=== PATIENT | female | born 1960 | race Caucasian/White ===

== ENCOUNTER 2016-05-31 10:06 | Emergency (ER) | payer BC, OTHER ==
[~2016-05-31] VITALS: Ht 165.1 cm; Wt 106.0 kg
[~2016-05-31 10:06] MED LIST: LEVE-5 PO; ONDA-43 PO; PRED10TA PO; PRED20 PO
[2016-05-31 10:09] VITALS: Ht 165.1 cm; Wt 106.0 kg
[2016-05-31] MEDS ORDERED: DIPHENHYDRAMINE 50 MG INJ IV STA (10:39)
[2016-05-31] MEDS ORDERED: ACETAMINOPHEN 325 MG TAB PO STA (10:39)
[2016-05-31] MEDS ORDERED: SOD CHLORIDE 0.9% 500 ML IV STA (10:39)
[2016-05-31] MEDS ORDERED: METOCLOPRAMIDE 10 MG INJ IV ONE (11:00)
[2016-05-31] MEDS ORDERED: ACET325T33 PO (11:16)
[2016-05-31] MEDS ORDERED: LORA-186 PO (11:16)
--- NOTE | 2016-05-31 11:50 | ERD ---
ER Documentation Chief Complaint Date/Time DATE: 05/31/16 TIME: 11:47 Chief Complaint L headache w/ ear pain x last night with (tylenol @ 2230) HPI This is a 56-year-old female with a history of epilepsy and headaches presenting to the emergency department complaining of left-sided headache and ear pain since the past 3 days. Patient states that the pain comes and goes she describes her ear pain as soreness. She denies any neuro deficits, vomiting , loss of consciousness, head injury, dizziness or hearing loss. Patient rates this pain moderate in severity. Patient states that she is following up with her neurologist and getting an image o MRI of her head. Patient states that her last CT scan was 2013 and was normal.. She denies taking any medications today, she states that she took Tylenol last night. Patient states that she used Q-tips. ROS All systems reviewed and are negative except as per history of present illness. Medications Home Meds Active Scripts Loratadine* (Claritin*) 10 Mg Tablet, 10 MG PO DAILY, #20 TAB Prov:SOMMER VAUGHAN PA-C 05/31/16 Acetaminophen* (Tylenol*) 325 Mg Tablet, 2 TAB PO Q6 Y for PAIN AND OR ELEVATED TEMP, #20 TAB Prov:SOMMER VAUGHAN PA-C 05/31/16 Ondansetron Hcl* (Zofran*) 4 Mg Tab, 4 MG PO Q6H Y for NAUSEA AND OR VOMITING, # 20 TAB Prov:RAKAREN DONOVANEEP S. 11/22/13 Prednisone (Prednisone) 20 Mg Tab, 20 MG PO DAILY for 2 Days, TAB Prov:RAHIJANIE S. 11/22/13 Prednisone (Prednisone) 10 Mg Tab, 10 MG PO DAILY for 2 Days, TAB Prov:RAHI,JANIE S. 11/22/13 Prednisone (Prednisone) 20 Mg Tab, 40 MG PO QPM, #2 TAB Prov:RAKAREN DONOVANEEP S. 11/22/13 Levetiracetam* (Keppra*) 500 Mg Tab, 500 MG PO BID, #60 4 Refills Prov:RAKAREN DONOVANEEP S. 11/22/13 Allergies Allergies: Coded Allergies: No Known Allergies (Verified Allergy, Unknown, 05/31/16) PMhx/Soc History of Surgery: Yes (chloecystectomy) Anesthesia Reaction: No Hx Neurological Disorder: No Hx Respiratory Disorders: No Hx Cardiac Disorders: Yes (HTN,HYPERLIPIDEMIA) Hx Psychiatric Problems: Yes (ANXIETY) Hx Miscellaneous Medical Probl: Yes (seizure) Hx Alcohol Use: No Hx Substance Use: No Hx Tobacco Use: Yes Smoking Status: Former smoker Physical Exam Vitals Vital Signs Date Time Temp Pulse Resp B/P Pulse Ox O2 Delivery O2 Flow Rate FiO2 05/31/16 10:09 97.8 71 18 142/90 97 Physical Exam GENERAL: well-developed/well-nourished, in no apparent distress, non-toxic appearing HENT: NC/AT, bilateral tympanic membrane is normal with good cone of light, nares patent, oropharynx clear without exudates EYES: Conjunctiva normal, PERRLA, EOMI, no nystagmus noted NECK: Supple, no lymphadenopathy PULM: CTA bilaterally, no rales, rhonchi, or wheezing heard CV: Normal S1S2, RRR, good capillary refill GI: Soft, non-distended, normal bowel sounds, non-tender BACK: No midline tenderness, no masses, No CVAT EXT: No clubbing, cyanosis, or edema NEURO: Alert and orientated to person, place, and time. CN II-IIX intact. Gait and coordination were normal. Hand camp assistant strength were equal and within normal limits SKIN: Intact, normal turgor PSYCH: Normal mood and mentation, patient denied SI Results 24 hrs Current Medications Medications (Trade) Dose Ordered Sig/Oneyda Route PRN Reason Start Time Stop Time Status Last Admin Dose Admin Sodium Chloride (NS) 500 ml @ 500 mls/hr Q1H STAT IV 05/31/16 10:39 05/31/16 11:38 DC 05/31/16 11:18 Acetaminophen (Tylenol Tab) 650 mg ONCE STAT PO 05/31/16 10:39 05/31/16 10:40 DC 05/31/16 11:18 Diphenhydramine HCl (Benadryl) 25 mg ONCE STAT IV 05/31/16 10:39 05/31/16 10:40 DC 05/31/16 11:18 Metoclopramide HCl (Reglan) 10 mg ONCE ONCE IV 05/31/16 11:00 05/31/16 11:01 DC 05/31/16 11:18 Procedures/MDM MDM: This is a 56-year-old female with history of epilepsy, headaches and vertigo presents with headache. My differential diagnoses include tension, migraine, and cluster headache, overuse medication headache, subarachnoid hemorrhage, meningitis, stroke. Pain relief was given in the ED with some improvement. Neurology exam was normal and I don't recommend a CT scan at this time. I discussed the risks versus the benefits and patient's agreed to not get a CT scan since she is getting imaging with her with her neurologist soon and she has had numerous CT scans in the past. On examination patient did not have any evidence of otitis media or otitis externa or mastoiditis. I will low suspicion for joint arthritis. She appears well, she speaking clearly and laughing. In the ED a saline lock was placed and patient was given 500 cc of fluid with Benadryl and Reglan. Patient had improvement in symptoms. DISPOSITION: hemodynamically stable and neurovascularly intact. Prescriptions Tylenol were given. Discussed to follow up with a primary care physician in the next couple days. Return to the ER if condition worsens or not improving as expected. Patient agreed and understood this plan. Departure Diagnosis: Primary Impression: Headache Condition: Stable Patient Instructions: Sinus Headaches, Self-Care for Headaches, Preventing Migraine Headaches: Triggers Referrals: DOCTOR,NOT ON STAFF (PCP) [facility]erson doctorrubia Additional Instructions: Visite a [facility]nderson matt miranda para un EXAMEN.Regrese a estas instalaciones si no se mejora chris esperbamos o chris le dijimos. [place] toda la medicina garcia y chris se le indic. Regrese a estas instalaciones si no se mejora chris esperbamos o chris le dijimos. FOLLOW UP WITH YOUR PRIMARY CARE PHYSICIAN TOMORROW.Return to this facility if you are not improving as expected. Return to this facility if you are not improving as expected. Take all medicines as directed. SOMMER VAUGHAN PA-C May 31, 2016 11:50
[2016-05-31 12:12] VITALS: BP 127/64; PULSE 74; RESP 19; TEMP 98.4
== END 2016-05-31 12:13 | disposition home or self-care (01) ==
LOC: FTE 10:06
DX: R51 Headache (principal); I10 Essential (primary) hypertension; Z87.891 Personal history of nicotine dependence
CPT/HCPCS: J1200; J2765; J7040; Z7610; 96374; 96375